=== PATIENT | female | born 1980 | race Caucasian/White ===

== ENCOUNTER → 2018-11-01 | Outpatient (CLI) | payer BC ==
--- NOTE | 2018-11-01 11:12 | KCIC ---
Bilateral digital screening mammograms with 3-D tomosynthesis: Reason for examination: Routine baseline screening. Bilateral mammograms in CC and oblique projections were obtained with 2-D imaging and 3-D tomosynthesis imaging on a Siemens Inspiration unit and reviewed on the workstation. Interpretation was made with the benefit of CAD. The skin and nipples show no abnormalities. No abnormal axillary lymph nodes are seen. The breast parenchyma shows scattered fatty and fibroglandular density. (Breast density: Category B.) There are nodular densities in the 12:00 B position of the right breast and in the 3:00 B position of the left breast. Further evaluation with ultrasound is recommended. There are no other dominant masses, suspicious calcifications or architectural distortion. Impression: Nodular densities at the 12:00 B position of the right breast and 3:00 B position of the left breast. Recommend further evaluation with ultrasound. BI-RADS Category 0: Incomplete: Need additional imaging evaluation. "Our facility is accredited by the [employer] Mammography [employer]." This patient's information has been entered into a reminder system for the patient to be notified with the results of her examination and a target date for the next mammogram. Electronically signed by: Mary Ann Barrow MD (11/01/2018 11:09 AM) [id number]
== END | disposition home or self-care (01) ==
LOC: KCIC MAMMO 08:59 → EDBD 08:59
PROVIDERS: ATTEND Family Medicine
DX: Z12.31 Encounter for screening mammogram for malignant neoplasm of breast (principal)
CPT/HCPCS: 77063; 77067

== ENCOUNTER → 2018-11-15 | Outpatient (CLI) | payer BC ==
--- NOTE | 2018-11-15 10:23 | KCIC ---
Bilateral breast ultrasound: Reason for examination: Nodular densities on screening mammogram. Comparison is made to mammographic exam dated 11/01/2018. Bilateral breast ultrasound in the areas of mammographic concern and axillary regions of both breasts was performed. In the right breast at the 12:00 position 4 to 5 cm from the nipple, there are patchy fibrocystic changes measuring up to 8.3 mm in size. No other cystic or solid lesions are seen. No abnormal appearing lymph nodes are seen in the right axilla. In the left breast at the 3:00 position 4 cm from the nipple, there is a 6.1 x 4.8 mm hypoechoic fibrocystic type lesion with a benign appearance. No other cystic or solid lesions are seen. No abnormal appearing lymph nodes are seen in the left axilla. IMPRESSION: Benign-appearing fibrocystic lesions seen bilaterally. No suspicious-appearing lesions are seen. Recommend 6 month follow-up with ultrasound. BI-RADS Category 3: Probably Benign. "Our facility is accredited by the [employer] Mammography [employer]." This patient's information has been entered into a reminder system for the patient to be notified with the results of her examination and a target date for the next mammogram. Electronically signed by: Mary Ann Barrow MD (11/15/2018 10:20 AM) [id number]
== END | disposition home or self-care (01) ==
LOC: KCIC US 09:46
PROVIDERS: ATTEND Family Medicine
DX: Z12.31 Encounter for screening mammogram for malignant neoplasm of breast (principal); N64.89 Other specified disorders of breast
CPT/HCPCS: 76641

== ENCOUNTER → 2019-05-19 | Outpatient (CLI) | payer BC ==
--- NOTE | 2019-05-19 14:25 | KCIC ---
Bilateral breast ultrasound: Reason for examination: Follow-up nodules. Comparison is made to previous study dated 11/15/2018. Ultrasound examination was performed of the breasts and axilla bilaterally. At the 12:00 position of the right breast, there continue to be small fibrocystic changes 4 to 5 cm from the nipple measuring approximately 1.6 cm in length which appears to be stable. No suspicious lesions are seen. No abnormal appearing lymph nodes are seen in the right axilla. In the left breast, there continues to be 7 mm cystic-appearing lesion at the 3:00 position 4 cm from the nipple which is stable. No other cystic or solid lesions are seen. No abnormal appearing lymph nodes with left axilla. IMPRESSION: 7 mm cyst in the left breast at the 3:00 position. 1.6 cm patch of fibrocystic change in the 12:00 position of the right breast. Recommend continued follow-up with ultrasound in 6 months which can be performed at the time of bilateral mammograms. BI-RADS Category 3: Probably Benign. "Our facility is accredited by the [employer] Mammography [employer]." This patient's information has been entered into a reminder system for the patient to be notified with the results of her examination and a target date for the next mammogram. Electronically signed by: Mary Ann Barrow MD (05/19/2019 2:21 PM) [facility]
== END | disposition home or self-care (01) ==
LOC: KCIC US 13:10
PROVIDERS: ATTEND Family Medicine
DX: N60.02 Solitary cyst of left breast (principal); N60.11 Diffuse cystic mastopathy of right breast
CPT/HCPCS: 76641